=== PATIENT | female | born 1990 | race Caucasian/White ===

== ENCOUNTER → 2016-09-12 | Outpatient (CLI) | payer MEDICAID ==
[~2016-09-12] MED LIST: GASTROGRAFIN SOLUTION 30ML (Q9963) As Ordered ONE; ISOVUE-370 76% 100ML VIAL (Q9967) As Ordered ONE
--- NOTE | 2016-09-12 15:10 | REP ---
CT abdomen with IV and oral contrast: History: Evaluate for ventral hernia. CT contrast dose: 100 mL of Isovue [address] findings: The lung bases are clear. Preliminary personnel monitor radiograph demonstrates an unremarkable bowel gas pattern. There is a low-density lesion in the right lobe of the liver measuring 2.1 cm in greatest diameter. A delayed postcontrast imaging acquisition demonstrates that this partially enhances and becomes isointense with liver. This may be a hemangioma. No other focal liver lesion is seen. The liver is in the upper range of normal with midclavicular span measuring 16.3 cm. The spleen is homogeneous in texture, normal in size. No pancreatic lesion is seen. The gallbladder is unremarkable. There is a cyst in the left kidney in its lower pole measuring 1.3 cm in diameter. No filling defect is seen in the collecting system of either kidney on delayed scan images. There is a small cyst in the upper pole of the right kidney measuring 0.8 cm. No other renal lesion is seen. No retroperitoneal mass or adenopathy is observed. Small and large intestinal bowel loops are normal in the abdomen. There is evidence of a ventral hernia repair. There is an epigastric ventral anterior abdominal wall defect transmitting a small quantity of omental fat through a defect in the anterior abdominal wall measuring 9 x 11 mm. This is above the mesh for the ventral hernia repair. No other abdominal wall defect is seen. Impression: 1. Right paramedian ventral hernia defect 1.1 cm in greatest diameter transmits a small quantity of omental fat. 2. Status post ventral hernia repair in the periumbilical region just below this. 3. Small bilateral simple renal cysts. 4. Low density lesion in the right lobe of the liver measuring 2.1 cm in greatest diameter. This may be a hemangioma. Hepatic sonography recommended in 4-6 months for further evaluation. Signed by Favio Woodward MD 09/12/2016 04:34 P
== END ==
LOC: M RAD 12:13
PROVIDERS: ATTEND Nurse Practitioner Family
DX: K43.9 Ventral hernia without obstruction or gangrene (principal); N28.1 Cyst of kidney, acquired; K76.9 Liver disease, unspecified; Z98.890 Other specified postprocedural states

== ENCOUNTER → 2016-10-10 | Day surgery (SDC) | payer MEDICAID, OTHER ==
[~2016-10-10] VITALS: Ht 162.6 cm; Wt 91.2 kg
[~2016-10-10] MED LIST changes: +BIRTH CONTROL SHOT; +BUPIVACAINE HCL 0.25% 30 ML VIAL As Ordered ONE; -GASTROGRAFIN SOLUTION 30ML (Q9963) As Ordered ONE; +GLYCOPYRROLATE INJ 0.2 MG/ML 2 ML VIAL As Ordered ONE; +HYDROmorphone HCL 1 MG/ML SYRINGE (J1170) IV PRN; +HYDROmorphone HCL 2 MG/ML 1ML VIAL (J1170) As Ordered ONE; +IBUP-1114 PO; -ISOVUE-370 76% 100ML VIAL (Q9967) As Ordered ONE; +KETOROLAC 30 MG/ML VIAL (J1885) IV PRN; +KETOROLAC 60 MG/2 ML VIAL (J1885) As Ordered ONE; +LIDOCAINE 1% SDV INJ 30 ML VIAL As Ordered ONE; +LIDOCAINE 2% INJ 100 MG/5 ML SDV (FOR ANES.) As Ordered ONE; +LR 1,000 ML IV SCH; +METOCLOPRAMIDE INJ 10MG/2ML VIAL (J2765) As Ordered ONE; +METOCLOPRAMIDE INJ 10MG/2ML VIAL (J2765) IV PRN; +MIDAZOLAM INJ 2 MG/2 ML VIAL (J2250) As Ordered ONE; +NEOSTIGMINE 1MG/ML 5 ML SYRINGE (J2710) As Ordered ONE; +NORCO, ANEXSIA 5/325MG TABLET (HYDROcodone/ACETAMINOPHEN) PO PRN; +ONDANSETRON 4MG/2ML VIAL (J2405) As Ordered ONE; +ONDANSETRON 4MG/2ML VIAL (J2405) IV PRN; +PERCOCET 5MG/325MG TAB As Ordered ONE; +PERCOCET 5MG/325MG TAB PO PRN; +PROPOFOL 200 MG/20 ML VIAL As Ordered ONE; +ROCURONIUM BROMIDE 50 MG/5 ML VIAL As Ordered ONE; +TYLE325T5 PO; +dexameTHASONE 4 MG/ML 1ML VIAL (J1100) As Ordered ONE; +fentaNYL 100 MCG/2 ML INJECTION (J3010) As Ordered ONE; +fentaNYL 250 MCG/5 ML INJECTION (J3010) As Ordered ONE
[2016-10-10 06:42] LABS: CONTROL LINE UCG INT CTR LINE PRESENT
[2016-10-10] MEDS: fentaNYL 100 MCG/2 ML INJECTION (J3010) IV PRN ×4 (09:04→09:28)
[2016-10-10 10:55] VITALS: BP 131/63
--- NOTE | 2016-10-11 09:07 | RO ---
DATE OF PROCEDURE: 10/10/2016 PREOPERATIVE DIAGNOSIS: Epigastric hernia. POSTOPERATIVE DIAGNOSIS: Epigastric hernia with incarcerated preperitoneal fat. PROCEDURE: Laparoscopic epigastric hernia repair. SURGEON: Dr. Zack Carrasco ORACLE EBS DEVELOPER: Sloane Ballard NP ANESTHESIA: General anesthesia ESTIMATED BLOOD LOSS: Less than 10 mL. COMPLICATIONS: None. REMARKS: The patient tolerated the procedure well. FINDINGS: She had previous mesh placement for an umbilical hernia repair. The hernia is located just superior to the superior edge of the previously-placed mesh about a 2-cm defect with a moderate-sized preperitoneal fat that was incarcerated in it. PROCEDURE NOTE: Ms. Covington is a 25-year-old female with prior history of an umbilical hernia repair, which appears to have been done laparoscopic or robotic with a mesh placement. Comes in to my office with a bulge on her epigastric area slightly to the right of the midline that is tender on palpation. She came with a CT scan of the abdomen and pelvis demonstrating a small epigastric hernia. She was advised surgery, and we chose laparoscopic approach. DESCRIPTION OF PROCEDURE: She received Ancef preoperatively for prophylaxis. She was brought to the operating room. General endotracheal anesthesia started. Her abdomen prepped and draped in the usual sterile fashion. After performing a surgical time-out, we began our surgery. A small stab incision was created on her left subcostal area. Veress needle was then inserted in a controlled fashion. CO2 insufflation started at a pressure of 15 mmHg. Using the same incision, a 5 mm Visiport was placed under direct vision of the laparoscope. The insertion site was inspected for injury; none was found on insertion of the scope. There were multiple omental adhesions on the anterior abdomen covering the previous hernia repair. A second working port was placed over the left lower quadrant area using a harmonic scalpel. The omental adhesions were freed from the anterior abdominal wall. The epigastric hernia was located on manual palpation, as well as visualization. It seems she has a fairly large patch of mesh covering her umbilicus. This extends to the epigastric hernia. The hernia itself was found just slightly superior to the superior edge of this mesh, not covering it. The falciform ligament was opened up with a harmonic scalpel. The hernia contents, which were preperitoneal fat, was then manually reduced, aided by palpation externally after reducing the fat tissue. The falciform ligament attachments were likewise freed to prepare the abdominal wall for placement of mesh. The defect itself is only about the cavity of the hernia, and the subcutaneous space extends about 4 or 5 cm. The extent of the hernia, as well as the margins, were marked externally. I chose a 9 cm Parietex composite mesh. Transabdominal stay sutures using a 0 Vicryl stitch was placed at the 12 and 6 o'clock position. This was rolled tightly and introduced into the abdomen through one of the port sites. In the abdomen, this was unrolled to place it just below the mesh. The defect itself is slightly to the right of the midline, so we adjusted our placement. The transabdominal sutures were pulled through to the abdomen with a small stab incision and introduction of the Jama-Gonsalves device. It centers on the hernia defect and slightly overlaps the previous mesh. This was laying flat. The intra-abdominal pressure was decreased to 10 mmHg. The mesh was then secured into the abdominal wall with two rows of SecureStrap device. The outer row is at the margin of the mesh in 2 cm spaces, the inner row was a couple of centimeters inside it, outside of the hernia defect. After these transabdominal sutures were tied snugly, the abdomen was then deflated. All ports removed. The port sites were closed with 4-0 Monocryl in subcuticular fashion. All incisions, including the transabdominal suture sites were covered with a Dermabond glue. The patient then promptly awakened, extubated, brought to recovery room stable.
== END | disposition home or self-care (01) ==
LOC: M SDC 05:52
PROVIDERS: ATTEND Surgery
DX: K43.6 Other and unspecified ventral hernia with obstruction, without gangrene (principal); T88.59XD Other complications of anesthesia, subsequent encounter; R06.83 Snoring; Z79.3 Long term (current) use of hormonal contraceptives
CPT/HCPCS: 49653; 84703; C1781; J0690; J1100; J1170; J1885; J2250; J2405; J2710; J2765; J3010

== ENCOUNTER → 2017-07-15 | Outpatient (REF) | payer OTHER ==
[~2017-07-15] MED LIST changes: -BUPIVACAINE HCL 0.25% 30 ML VIAL As Ordered ONE; -GLYCOPYRROLATE INJ 0.2 MG/ML 2 ML VIAL As Ordered ONE; -HYDROmorphone HCL 1 MG/ML SYRINGE (J1170) IV PRN; -HYDROmorphone HCL 2 MG/ML 1ML VIAL (J1170) As Ordered ONE; -KETOROLAC 30 MG/ML VIAL (J1885) IV PRN; -KETOROLAC 60 MG/2 ML VIAL (J1885) As Ordered ONE; -LIDOCAINE 1% SDV INJ 30 ML VIAL As Ordered ONE; -LIDOCAINE 2% INJ 100 MG/5 ML SDV (FOR ANES.) As Ordered ONE; -LR 1,000 ML IV SCH; -METOCLOPRAMIDE INJ 10MG/2ML VIAL (J2765) As Ordered ONE; -METOCLOPRAMIDE INJ 10MG/2ML VIAL (J2765) IV PRN; -MIDAZOLAM INJ 2 MG/2 ML VIAL (J2250) As Ordered ONE; -NEOSTIGMINE 1MG/ML 5 ML SYRINGE (J2710) As Ordered ONE; -NORCO, ANEXSIA 5/325MG TABLET (HYDROcodone/ACETAMINOPHEN) PO PRN; -ONDANSETRON 4MG/2ML VIAL (J2405) As Ordered ONE; -ONDANSETRON 4MG/2ML VIAL (J2405) IV PRN; -PERCOCET 5MG/325MG TAB As Ordered ONE; -PERCOCET 5MG/325MG TAB PO PRN; -PROPOFOL 200 MG/20 ML VIAL As Ordered ONE; -ROCURONIUM BROMIDE 50 MG/5 ML VIAL As Ordered ONE; -dexameTHASONE 4 MG/ML 1ML VIAL (J1100) As Ordered ONE; -fentaNYL 100 MCG/2 ML INJECTION (J3010) As Ordered ONE; -fentaNYL 250 MCG/5 ML INJECTION (J3010) As Ordered ONE
[2017-07-15 16:10] LABS: ALBUMIN 3.9 GM/DL (3.2-5.2); ALBUMIN/GLOBULIN RATIO 1.08 (1.00-1.93); ALKALINE PHOSPHATASE 116 U/L (45-117); ALT/SGPT 47 U/L (12-78); ANION GAP 12 MEQ/L (8-16); AST/SGOT 17 U/L (7-37); BILIRUBIN,TOTAL 0.3 MG/DL (0.2-1.0); BLOOD UREA NITROGEN 7 MG/DL (7-18); CARBON DIOXIDE LEVEL 23 MEQ/L (21-32); CHLORIDE LEVEL 106 MEQ/L (98-107); CREATININE FOR GFR 0.58 MG/DL (0.55-1.02); FREE T4 1.17 NG/DL (0.76-1.46); GLOMERULAR FILTRATION RATE > 60.0 (>60); GLUCOSE, FASTING 97 MG/DL (70-105); POTASSIUM SERUM 4.4 MEQ/L (3.5-5.1); SODIUM LEVEL 141 MEQ/L (136-145); TOTAL PROTEIN 7.5 GM/DL (6.4-8.2)
== END ==
LOC: M SFHCPLAZ 11:31
PROVIDERS: ATTEND Nurse Practitioner Family
DX: R03.0 Elevated blood-pressure reading, without diagnosis of hypertension (principal)

== ENCOUNTER → 2017-07-18 | Outpatient (CLI) | payer OTHER ==
--- NOTE | 2017-07-18 10:27 | REP ---
RIGHT WRIST, FOUR VIEWS: There is no evidence of an acute fracture, dislocation or intrinsic bone disease. IMPRESSION: No fracture or dislocation. Signed by Perry Galvan MD 07/18/2017 10:37 A
== END ==
LOC: M WUC 09:34
PROVIDERS: ATTEND Physician Assistant
DX: M25.531 Pain in right wrist (principal)

== ENCOUNTER → 2017-10-02 | Outpatient (CLI) | payer OTHER | LOC: M EKG 14:13 | DX: R03.0 Elevated blood-pressure reading, without diagnosis of hypertension (principal) | CPT/HCPCS: 93788 ==

== ENCOUNTER → 2017-11-05 | Outpatient (CLI) | payer OTHER ==
[2017-11-05 19:10] LABS: ANION GAP 7 MEQ/L (8-16); BLOOD UREA NITROGEN 11 MG/DL (7-18); CALCIUM LEVEL 8.6 MG/DL (8.5-10.1); CARBON DIOXIDE LEVEL 25 MEQ/L (21-32); CHLORIDE LEVEL 108 MEQ/L (98-107); CREATININE FOR GFR 0.61 MG/DL (0.55-1.30); GLOMERULAR FILTRATION RATE > 60.0 (>60); GLUCOSE, FASTING 85 MG/DL (70-100); SODIUM LEVEL 140 MEQ/L (136-145)
== END ==
LOC: M WUC 15:35
DX: I10 Essential (primary) hypertension (principal)
CPT/HCPCS: 80048

== ENCOUNTER → 2018-07-07 | Outpatient (REF) | payer OTHER | LOC: M LAB REF 11:54 | DX: J02.9 Acute pharyngitis, unspecified (principal) | CPT/HCPCS: 87081 ==

== ENCOUNTER → 2018-09-09 | Outpatient (CLI) | payer OTHER ==
[2018-09-09 20:05] LABS: BLOOD UREA NITROGEN 9 MG/DL (7-18); CALCIUM LEVEL 8.7 MG/DL (8.5-10.1); CARBON DIOXIDE LEVEL 24 MEQ/L (21-32); CHLORIDE LEVEL 107 MEQ/L (98-107); GLOMERULAR FILTRATION RATE > 60.0 (>60); GLUCOSE, FASTING 133 MG/DL (70-100); POTASSIUM SERUM 3.7 MEQ/L (3.5-5.1); SODIUM LEVEL 139 MEQ/L (136-145)
== END ==
LOC: M WUC 16:39
PROVIDERS: ATTEND Nurse Practitioner Family
DX: I10 Essential (primary) hypertension (principal)

== ENCOUNTER → 2018-09-10 | Outpatient (REF) | payer OTHER ==
[2018-09-10 12:09] LABS: CHOLESTEROL RISK RATIO 5.093 (<5)
[2018-09-10 12:19] LABS: MALB URINE SIEMENS 53.2 MG/L; MAU/CREAT RATIO 36.6 MCG/MG (0.0-30.0)
[2018-09-10 12:41] LABS: HEMOGLOBIN A1c 5.4 %
== END ==
LOC: M SFHCPLAZ 09:52
PROVIDERS: ATTEND Nurse Practitioner Family
DX: I10 Essential (primary) hypertension (principal); R73.01 Impaired fasting glucose

== ENCOUNTER → 2018-09-25 | Outpatient (REF) | payer OTHER ==
[2018-09-25 16:15] LABS: BASO # 0.1 10^3/uL (0.0-0.2); BASO % 0.8 % (0.0-1.0); EOS # 0.2 10^3/uL (0.0-0.50); HEMATOCRIT 46.4 % (36.0-47.0); HEMOGLOBIN 15.6 g/dl (12.0-15.5); LYMPH # 3.6 10^3/uL (1.5-6.5); LYMPH % 24.5 % (24.0-44.0); MEAN CORPUSCULAR HEMOGLOBIN 27.6 pg (27.0-33.0); MEAN CORPUSCULAR HGB CONC 33.6 g/dl (32.0-36.5); MEAN CORPUSCULAR VOLUME 82.1 fl (80.0-96.0); MONO # 1.1 10^3/uL (0.0-0.8); MONO % 7.8 % (0.0-5.0); NEUTROPHILS # 9.4 10^3/uL (1.8-7.7); NEUTROPHILS % 64.7 % (36.0-66.0); PLATELET COUNT, AUTOMATED 413 10^3/uL (150-450); RED BLOOD COUNT 5.65 10^6/uL (4.00-5.40); WHITE BLOOD COUNT 14.6 10^3/uL (4.0-10.0)
[2018-09-25 16:16] LABS: ALBUMIN 3.8 GM/DL (3.2-5.2); ALT/SGPT 40 U/L (12-78); BILIRUBIN,TOTAL 0.3 MG/DL (0.2-1.0); BLOOD UREA NITROGEN 10 MG/DL (7-18); CALCIUM LEVEL 9.1 MG/DL (8.5-10.1); CARBON DIOXIDE LEVEL 26 MEQ/L (21-32); CHLORIDE LEVEL 104 MEQ/L (98-107); CREATININE FOR GFR 0.61 MG/DL (0.55-1.30); GLOMERULAR FILTRATION RATE > 60.0 (>60); GLUCOSE, FASTING 77 MG/DL (70-100); LIPASE 133 U/L (73-393); POTASSIUM SERUM 3.8 MEQ/L (3.5-5.1); SODIUM LEVEL 139 MEQ/L (136-145); TOTAL PROTEIN 7.3 GM/DL (6.4-8.2)
== END ==
LOC: M SFHCPLAZ 13:58
PROVIDERS: ATTEND Family Medicine
DX: R10.11 Right upper quadrant pain (principal)

== ENCOUNTER → 2018-09-26 | Outpatient (CLI) | payer OTHER ==
--- NOTE | 2018-09-26 15:43 | REP ---
LIMITED ABDOMEN ULTRASOUND: HISTORY: Right upper quadrant pain. COMPARISON: CT 09/12/2016. There are no filling defects in the gallbladder. The gallbladder wall measures 2.7 mm. The common bile duct measures 5 mm. There is fatty infiltration of the liver. A 2.5 cm cystic lesion is present in the right lobe of the liver. The pancreas is normal in echogenicity. The right kidney measures 5.7 cm in transverse by 4 cm in AP by 12.8 cm in cephalocaudal dimensions. There is no hydronephrosis or mass. IMPRESSION: Small 2.5 cm liver cyst. Electronically Signed by Julio Littlejohn MD 09/26/2018 03:46 P
== END ==
LOC: M RAD 08:30
PROVIDERS: ATTEND Family Medicine
DX: K76.89 Other specified diseases of liver (principal)

== ENCOUNTER → 2018-10-01 | Outpatient (REF) | payer OTHER ==
[2018-10-01 11:55] LABS: BASO # 0.1 10^3/uL (0.0-0.2); BASO % 0.8 % (0.0-1.0); EOS # 0.1 10^3/uL (0.0-0.50); EOS % 0.8 % (0.0-3.0); HEMATOCRIT 46.3 % (36.0-47.0); HEMOGLOBIN 15.7 g/dl (12.0-15.5); LYMPH # 3.1 10^3/uL (1.5-6.5); LYMPH % 23.5 % (24.0-44.0); MEAN CORPUSCULAR HEMOGLOBIN 27.8 pg (27.0-33.0); MEAN CORPUSCULAR HGB CONC 33.9 g/dl (32.0-36.5); MEAN CORPUSCULAR VOLUME 82.1 fl (80.0-96.0); MONO # 0.6 10^3/uL (0.0-0.8); MONO % 4.8 % (0.0-5.0); NEUTROPHILS # 9.1 10^3/uL (1.8-7.7); NEUTROPHILS % 68.9 % (36.0-66.0); PLATELET COUNT, AUTOMATED 424 10^3/uL (150-450); RED BLOOD COUNT 5.64 10^6/uL (4.00-5.40); WHITE BLOOD COUNT 13.2 10^3/uL (4.0-10.0)
== END ==
LOC: M SFHCPLAZ 10:05
PROVIDERS: ATTEND Nurse Practitioner Family
DX: R10.11 Right upper quadrant pain (principal); R10.31 Right lower quadrant pain

== ENCOUNTER → 2018-10-01 | Outpatient (CLI) | payer OTHER ==
[~2018-10-01] MED LIST changes: +GASTROGRAFIN SOLUTION 30ML (Q9963) As Ordered ONE; +ISOVUE-370 76% 100ML VIAL (Q9967) As Ordered ONE
--- NOTE | 2018-10-01 16:57 | REP ---
Clinical: Acute abdominal pain. Technique: Axial contrast enhanced images from the lung bases to the pubic symphysis using oral (per protocol) and 100 ml Isovue 370 intravenous contrast material with precontrast and delayed images of the abdomen as well as coronal and sagittal re-formations. Findings: Lung bases are clear. Visualized heart and pericardium normal. Small hiatal hernia noted at the gastroesophageal junction. Liver includes 2.9 cm hemangioma in the right lobe. Spleen, pancreas, gallbladder, and bilateral adrenal glands are normal. Kidneys demonstrate subcentimeter right and 1.4 cm left renal cysts. The enteric system is without obstruction or acute inflammatory process. Normal terminal ileum and appendix are identified in the right lower quadrant. Pelvis demonstrates normal bladder and age-appropriate uterus/adnexa. No ascites. No free air. No adenopathy. Abdominal aorta and vasculature normal. Musculoskeletal structures are intact. Impression: 1. 2.9 cm hepatic hemangioma. 2. Solitary bilateral renal cysts. 3. Small hiatal hernia. 4. No further acute abdominopelvic pathology appreciated. Electronically Signed by Donald Bates MD 10/01/2018 04:48 P
== END ==
LOC: M RAD 14:19
PROVIDERS: ATTEND Nurse Practitioner Family
DX: D18.09 Hemangioma of other sites (principal); N28.1 Cyst of kidney, acquired; K44.9 Diaphragmatic hernia without obstruction or gangrene
CPT/HCPCS: 74178; Q9963; Q9967

== ENCOUNTER → 2018-12-03 | Outpatient (REF) | payer OTHER ==
[~2018-12-03] MED LIST changes: -GASTROGRAFIN SOLUTION 30ML (Q9963) As Ordered ONE; -ISOVUE-370 76% 100ML VIAL (Q9967) As Ordered ONE
[2018-12-03 20:36] LABS: CHLAMYDIA DNA AMPLIFICATION NEGATIVE (NEGATIVE); GC DNA AMPLIFICATION NEGATIVE (NEGATIVE)
== END ==
LOC: M LAB REF 16:38
PROVIDERS: ATTEND Physician Assistant
DX: Z11.3 Encounter for screening for infections with a predominantly sexual mode of transmission (principal)

== ENCOUNTER 2019-01-09 15:06 | Emergency (ER) | payer OTHER ==
[~2019-01-09] VITALS: Ht 162.6 cm; Wt 102.2 kg
[2019-01-09] MEDS ORDERED: AMLO5TAB6 (15:14)
[2019-01-09] MEDS ORDERED: KETOROLAC 30 MG/ML VIAL (J1885) IM ONE (17:30)
[2019-01-09 19:07] VITALS: BP 147/87
[2019-01-09] MEDS ORDERED: KETO10TAB PO (19:18)
--- NOTE | 2019-01-09 19:45 | REP ---
THORACIC SPINE, THREE VIEWS: HISTORY: Fall. There is no acute fracture or subluxation. The intervertebral discs are normal in height. IMPRESSION:There is no acute fracture or subluxation. Electronically Signed by Julio Littlejohn MD 01/09/2019 09:18 P
--- NOTE | 2019-01-10 08:15 | REP ---
CERVICAL SPINE, SEVEN VIEWS: HISTORY: Fall. The cervical spine is visualized from C1-2 to C6-7 level on the lateral radiographs. There is no acute fracture or subluxation. The intervertebral discs are normal in height. The neural foramina are patent. IMPRESSION: There is no acute fracture or subluxation. Electronically Signed by Julio Littlejohn MD 01/10/2019 08:18 A
== END 2019-01-09 19:31 | disposition home or self-care (01) ==
LOC: M ED 15:06
DX: S29.012A Strain of muscle and tendon of back wall of thorax, initial encounter (principal); X50.9XXA Other and unspecified overexertion or strenuous movements or postures, initial encounter; Y92.89 Other specified places as the place of occurrence of the external cause; I10 Essential (primary) hypertension; E78.00 Pure hypercholesterolemia, unspecified
CPT/HCPCS: 72052; 72072; 96372; 99283; J1885

== ENCOUNTER → 2019-06-11 | Outpatient (CLI) | payer OTHER ==
[~2019-06-11] MED LIST changes: +AMLO5TAB6; +KETO10TAB PO
[2019-06-11 12:08] LABS: HEMATOCRIT 46.3 % (36.0-47.0); HEMOGLOBIN 15.7 g/dl (12.0-15.5); MEAN CORPUSCULAR HGB CONC 33.9 g/dl (32.0-36.5); MEAN CORPUSCULAR VOLUME 85.4 fl (80.0-96.0); PLATELET COUNT, AUTOMATED 398 10^3/uL (150-450); RED BLOOD COUNT 5.42 10^6/uL (4.00-5.40); WHITE BLOOD COUNT 10.6 10^3/uL (4.0-10.0)
[2019-06-11 12:42] LABS: ALT/SGPT 63 U/L (12-78); BLOOD UREA NITROGEN 14 MG/DL (7-18); CALCIUM LEVEL 9.2 MG/DL (8.5-10.1); CARBON DIOXIDE LEVEL 27 MEQ/L (21-32); CHLORIDE LEVEL 106 MEQ/L (98-107); CREATININE FOR GFR 0.76 MG/DL (0.55-1.30); GLOMERULAR FILTRATION RATE > 60.0 (>60); GLUCOSE, FASTING 81 MG/DL (70-100); POTASSIUM SERUM 4.4 MEQ/L (3.5-5.1); SODIUM LEVEL 138 MEQ/L (136-145)
[2019-06-11 12:43] LABS: ALBUMIN 3.7 GM/DL (3.2-5.2); BILIRUBIN,TOTAL 0.4 MG/DL (0.2-1.0); TOTAL PROTEIN 7.6 GM/DL (6.4-8.2)
== END ==
LOC: M LAB 11:26
PROVIDERS: ATTEND Surgery
DX: R10.11 Right upper quadrant pain (principal)

== ENCOUNTER → 2019-06-19 | Outpatient (CLI) | payer OTHER ==
--- NOTE | 2019-06-19 08:39 | REP ---
Clinical: Right upper quadrant pain. Technique: Real time ro scale ultrasound examination using curved array transducer. Findings: Liver is mildly enlarged measuring 22 cm in craniocaudal length and increased in echogenicity suggesting fatty infiltration. Focal fatty sparing noted adjacent to the gallbladder fossa. No focal hepatic lesion identified. The pancreas is unremarkable. The gallbladder is normal and without gallstones, wall thickening, or pericholecystic fluid. No biliary ductal dilatation is appreciated and the common bile duct measures 4.8 mm diameter. The right kidney is normal in reniform shape without hydronephrosis and measures 13.0 x 4.6 x 4.0 cm. No ascites. Impression: Hepatomegaly and hepatosteatosis. Electronically Signed by Donald Bates MD 06/19/2019 08:30 A
== END ==
LOC: M RAD 07:25
PROVIDERS: ATTEND Surgery
DX: R16.0 Hepatomegaly, not elsewhere classified (principal); K76.0 Fatty (change of) liver, not elsewhere classified

== ENCOUNTER 2019-08-23 14:14 | Emergency (ER) | payer OTHER ==
[~2019-08-23] VITALS: Ht 162.6 cm; Wt 98.4 kg
[2019-08-23] MEDS ORDERED: KETOROLAC 60 MG/2 ML VIAL (J1885) IM ONE (15:00)
[2019-08-23] MEDS ORDERED: HYDR12.55 (15:06)
--- NOTE | 2019-08-23 15:15 | REP ---
Right ankle series: Four views. History: Injury in a fall. Findings: Four views of the right ankle demonstrate an intact ankle mortise. There is plantar calcaneal spurring. Anterolateral soft tissue swelling is seen. Impression: No fracture seen. Mild anterolateral soft tissue swelling. Electronically Signed by Favio Woodward MD 08/23/2019 03:06 P
[2019-08-23 15:35] VITALS: BP 162/88
== END 2019-08-23 15:35 | disposition home or self-care (01) ==
LOC: M ED 14:14
DX: S93.401A Sprain of unspecified ligament of right ankle, initial encounter (principal); X50.9XXA Other and unspecified overexertion or strenuous movements or postures, initial encounter; Y92.018 Other place in single-family (private) house as the place of occurrence of the external cause; I10 Essential (primary) hypertension; E78.00 Pure hypercholesterolemia, unspecified; Z79.899 Other long term (current) drug therapy
CPT/HCPCS: 36415; 73610; 84702; 96372; 99284; J1885

== ENCOUNTER → 2019-10-20 | Outpatient (REF) | payer OTHER ==
[~2019-10-20] MED LIST changes: +HYDR12.55
[2019-10-20 11:47] LABS: HEMOGLOBIN 15.5 g/dl (12.0-15.5); MEAN CORPUSCULAR HEMOGLOBIN 28.3 pg (27.0-33.0); MEAN CORPUSCULAR HGB CONC 33.7 g/dl (32.0-36.5); MEAN CORPUSCULAR VOLUME 84.1 fl (80.0-96.0); PLATELET COUNT, AUTOMATED 383 10^3/uL (150-450); RED BLOOD COUNT 5.47 10^6/uL (4.00-5.40); WHITE BLOOD COUNT 8.6 10^3/uL (4.0-10.0)
[2019-10-20 12:00] LABS: BLOOD UREA NITROGEN 8 MG/DL (7-18); CALCIUM LEVEL 8.7 MG/DL (8.5-10.1); CARBON DIOXIDE LEVEL 26 MEQ/L (21-32); CHLORIDE LEVEL 106 MEQ/L (98-107); CREATININE FOR GFR 0.67 MG/DL (0.55-1.30); GLOMERULAR FILTRATION RATE > 60.0 (>60); GLUCOSE, FASTING 95 MG/DL (70-100); POTASSIUM SERUM 3.7 MEQ/L (3.5-5.1); SODIUM LEVEL 138 MEQ/L (136-145)
[2019-10-20 12:19] LABS: ERYTHROCYTE SEDIMENTATION RATE 19 mm/hr (0-20)
== END ==
LOC: M SFHCPLAZ 09:38
PROVIDERS: ATTEND Nurse Practitioner Family
DX: G43.109 Migraine with aura, not intractable, without status migrainosus (principal); I10 Essential (primary) hypertension

== ENCOUNTER 2020-05-16 16:51 | Emergency (ER) | payer OTHER ==
[~2020-05-16] VITALS: Ht 162.6 cm; Wt 93.2 kg
[~2020-05-16 16:51] MED LIST changes: +AMLO1TAB24; -AMLO5TAB6
[2020-05-16 17:14] VITALS: BP 150/86
[2020-05-16] MEDS ORDERED: LABETALOL 100 MG TAB PO STA (17:14)
[2020-05-16] MEDS ORDERED: NS 1,000 ML IV ONE (17:15)
--- NOTE | 2020-05-16 17:42 | REPVR ---
PROCEDURE INFORMATION: Exam: XR Chest, 1 View Exam date and time: 05/16/2020 5:21 PM Age: 29 years old Clinical indication: Other: Chest pain TECHNIQUE: Imaging protocol: XR of the chest Views: 1 view. COMPARISON: No relevant prior studies available. FINDINGS: Lungs: Degree of lung inflation is normal. No evidence of pulmonary edema. No focal consolidation or parenchymal lung mass. Pleural space: No pleural effusion or pneumothorax. Heart/Mediastinum: Cardiac silhouette appears normal. No adenopathy or hilar mass. Bones/joints: Osseous structures show no concerning abnormality. IMPRESSION: No acute or focal cardiopulmonary process. Electronically signed by: Teodoro Rebolledo On 05/16/2020 17:42:06 PM
[2020-05-16 17:44] LABS: BASO # 0.1 10^3/uL (0.0-0.2); BASO % 0.5 % (0.0-1.0); EOS # 0.1 10^3/uL (0.0-0.5); EOS % 1.1 % (0.0-3.0); HEMATOCRIT 36.2 % (36.0-47.0); HEMOGLOBIN 12.4 g/dl (12.0-15.5); LYMPH # 1.6 10^3/uL (1.5-5.0); LYMPH % 14.9 % (24.0-44.0); MEAN CORPUSCULAR HEMOGLOBIN 28.3 pg (27.0-33.0); MEAN CORPUSCULAR HGB CONC 34.3 g/dl (32.0-36.5); MEAN CORPUSCULAR VOLUME 82.6 fl (80.0-96.0); MONO # 0.7 10^3/uL (0.0-0.8); NEUTROPHILS # 8.3 10^3/uL (1.5-8.5); NEUTROPHILS % 76.7 % (36.0-66.0); PLATELET COUNT, AUTOMATED 342 10^3/uL (150-450); RED BLOOD COUNT 4.38 10^6/uL (4.00-5.40); WHITE BLOOD COUNT 10.9 10^3/uL (4.0-10.0)
[2020-05-16 17:56] LABS: INR 0.97; PROTHROMBIN TIME 13.1 SECONDS (12.5-14.3)
--- NOTE | 2020-05-16 18:04 | ECGEPIP ---
[facility] - ED Test Date: 2020-05-16 Pat Name: LORI CHRISTIAN Department: Room: - Gender: Female Sample Paster: MARTIN : 1990 Requested By: Cathleen Russell Order Number: [id number] Reading MD: Cathleen Russell Measurements Intervals [place] Rate: 115 P: 16 OK: 147 QRS: 50 QRSD: 87 T: 5 QT: 323 QTc: 447 Interpretive Statements SINUS TACHYCARDIA NSTTW abnormalities ABNORMAL RHYTHM ECG No prior Electronically Signed on 05-16-2020 18:03:44 EDT by Cathleen Russell
[2020-05-16 18:15] LABS: ALBUMIN 2.9 GM/DL (3.2-5.2); ALT/SGPT 16 U/L (12-78); BILIRUBIN,DIRECT < 0.1 MG/DL (0.0-0.2); BILIRUBIN,TOTAL 0.1 MG/DL (0.2-1.0); BLOOD UREA NITROGEN 8 MG/DL (7-18); CALCIUM LEVEL 9.2 MG/DL (8.5-10.1); CARBON DIOXIDE LEVEL 21 MEQ/L (21-32); CHLORIDE LEVEL 108 MEQ/L (98-107); CK-MB VALUE MASS < 1.0 NG/ML (<3.6); CPK CREATINE PHOSPHOKINASE 46 U/L (26-192); CREATININE FOR GFR 0.51 MG/DL (0.55-1.30); FREE T4 1.11 NG/DL (0.76-1.46); GLOMERULAR FILTRATION RATE > 60.0 (>60); GLUCOSE, FASTING 89 MG/DL (70-100); LIPASE 108 U/L (73-393); MB/CK RELATIVE INDEX 2.17 (< OR =4); NT-PRO BNP 38 PG/ML (<125); POTASSIUM SERUM 3.4 MEQ/L (3.5-5.1); SODIUM LEVEL 137 MEQ/L (136-145); TOTAL PROTEIN 6.8 GM/DL (6.4-8.2); TROPONIN I < 0.02 NG/ML (< 0.10)
[2020-05-16] MEDS ORDERED: LABE100T36 PO (18:42)
[2020-05-16 19:30] VITALS: BP 148/80
== END 2020-05-16 19:41 | disposition home or self-care (01) ==
LOC: EDBD 16:51 → M ED 16:51
DX: O10.012 Pre-existing essential hypertension complicating pregnancy, second trimester (principal); O99.282 Endocrine, nutritional and metabolic diseases complicating pregnancy, second trimester; E78.5 Hyperlipidemia, unspecified; Z3A.14 14 weeks gestation of pregnancy

== ENCOUNTER → 2020-05-20 | Outpatient (CLI) | payer OTHER ==
[~2020-05-20] MED LIST changes: +LABE100T36 PO
== END ==
LOC: M LAB 12:12
PROVIDERS: ATTEND Obstetrics & Gynecology
DX: O99.211 Obesity complicating pregnancy, first trimester (principal); E66.9 Obesity, unspecified

== ENCOUNTER → 2020-06-15 | Outpatient (CLI) | payer OTHER ==
--- NOTE | 2020-06-15 14:35 | REP ---
INDICATION: ANATOMY. COMPARISON: 04/06/2020 TECHNIQUE: Second trimester anatomy screening OB ultrasound. FINDINGS: Scanning demonstrates a viable single intrauterine gestation in a variable lie. motion is observed and heart rate is recorded at 152 beats per minute. An anterior, grade 1 placenta is seen without evidence of previa or abruption. Amniotic fluid is subjectively normal. Closed cervical length is measured at 3.2 cm transabdominally. No extrauterine abnormality is observed. There has been appropriate interval growth. No anomaly is seen. The following anatomic structures are identified and felt to be sonographically unremarkable: cranium, choroid plexus, cavum, cerebellum and posterior fossa, face and profile, lungs, left ventricular outflow tract views, diaphragm, left-sided stomach, abdominal wall cord insertion, three-vessel umbilical cord, kidneys and bladder and upper and lower extremities. Biometry chart: BPD 4.2 cm; 18 weeks 5 days Head circumference 15.9 cm; 18 weeks 5 days Abdominal circumference 13.9 cm; 19 weeks 2 days Femur length 2.8 cm; 18 weeks 4 days Humeral length 2.7 cm; 18 weeks 5 days HC/AC ratio normal Cephalic index normal Estimated weight 266 grams, 0 pounds 9 ounces, 68 percentile for 18 weeks 4 days. IMPRESSION: A single intrauterine gestation in variable position with anterior grade 1 placenta without previa or abruption and with the mid cord insertion. Amniotic fluid volume is normal and heart rate 152 and regular. Average ultrasound age today 18 weeks 6 days EDC 11/10/2020. Her known EDC is 11/12/2020 or 18 weeks 4 days. Normal interval growth, size and dates as above. No visible anomaly but due to position the 4 chamber view, right ventricular outflow tract and spine are not optimally visualized. She may be rescanned later in the 2nd trimester. <Electronically signed by Bob Murrieta > 06/15/20 [id number]
== END ==
LOC: M WHC 08:48
PROVIDERS: ATTEND Obstetrics & Gynecology
DX: Z34.92 Encounter for supervision of normal pregnancy, unspecified, second trimester (principal); Z3A.18 18 weeks gestation of pregnancy

== ENCOUNTER → 2020-06-29 | Outpatient (CLI) | payer OTHER ==
--- NOTE | 2020-06-29 11:12 | REP ---
INDICATION: F/U ANATOMY COMPARISON: 06/15/2020 TECHNIQUE: Transabdominal obstetrical ultrasound with color Doppler evaluation. FINDINGS: Examination demonstrates a single live intrauterine in breech presentation. motion is identified by technologist. Placenta is noted anterior and grade 1 without evidence for placenta previa or abruption. Amniotic fluid volume is normal. Cervix measures 3.4 cm in length and appears closed.. Gestational age by LMP 20 weeks 4 days with ANGIE 11/12/2020. Gestational age by current measurements 20 weeks 4 days with ANGIE 11/12/2020. FHR equals 150 beats per minute. Estimated weight 388 grams (66thpercentile). Anatomical assessment demonstrates normal structures including four-chamber heart/right cardiac ventricular outflow tract and spine. IMPRESSION: Single live intrauterine in breech presentation demonstrating appropriate estimated weight and growth. In conjunction with prior examination anatomical assessment is complete and normal. <Electronically signed by Donald Bates > 06/29/20 [id number]
== END ==
LOC: M WHC 08:55
PROVIDERS: ATTEND Advanced Practice Midwife
DX: O34.211 Maternal care for low transverse scar from previous cesarean delivery (principal); O32.1XX0 Maternal care for breech presentation, not applicable or unspecified; Z3A.20 20 weeks gestation of pregnancy

== ENCOUNTER → 2020-08-12 | Outpatient (CLI) | payer OTHER ==
[2020-08-12 13:17] LABS: HEMATOCRIT 36.3 % (36.0-47.0); HEMOGLOBIN 11.6 g/dl (12.0-15.5); MEAN CORPUSCULAR VOLUME 84.4 fl (80.0-96.0); PLATELET COUNT, AUTOMATED 329 10^3/uL (150-450); WHITE BLOOD COUNT 10.6 10^3/uL (4.0-10.0)
== END ==
LOC: M WHC 08:32
PROVIDERS: ATTEND Obstetrics & Gynecology
DX: O10.919 Unspecified pre-existing hypertension complicating pregnancy, unspecified trimester (principal)

== ENCOUNTER → 2020-08-19 | Outpatient (CLI) | payer OTHER ==
--- NOTE | 2020-08-19 16:12 | REP ---
INDICATION: PRE EXISTING HYPERTENSION,GROWTH. COMPARISON: 06/29/2020. TECHNIQUE: Real-time sonographic evaluation of the gravid uterus performed. FINDINGS: Estimated gestational age is27 weeks 6 days, EDC 11/12/2020. Today's measurements indicate appropriate growth. Presentation: Cephalic Placenta anterior, grade 2, without evidence of placenta previa. heart rate is recorded at 149 beats per minute. Amniotic fluid is subjectively normal. EDWARDO 14.5, normal range 9.4-22.8. Closed cervical length is measured at 3.7 cm. Biometry chart: BPD: 68 mm, 27 weeks 2 days, 37th percentile. HC: 258 mm, 28 weeks 0 days, 54th percentile AC: 256 mm, 29 weeks 6 days, 90th percentile Femur length: 55 mm, 29 weeks 0 days, 75th percentile HC to AC ratio: 1.01, normal range 1.00-1.18. Estimated weight: 1348g, 85th percentile. IMPRESSION: Viable single intrauterine gestation as above. <Electronically signed by Perry Galvan > 08/19/20 [id number]
== END ==
LOC: M WHC 09:01
PROVIDERS: ATTEND Obstetrics & Gynecology
DX: O10.912 Unspecified pre-existing hypertension complicating pregnancy, second trimester (principal); Z3A.27 27 weeks gestation of pregnancy

== ENCOUNTER → 2020-08-20 | Outpatient (CLI) | payer OTHER ==
[2020-08-20 11:12] VITALS: BP 127/67
--- NOTE | 2020-08-20 12:50 | IPNPDOC ---
Obstetrical Progress Note Date of Service Aug 20, 2020 Subjective 29yo at 28+0 weeks EGA. H/o CHTN, LTCS, and obesity. Presented today for BP check. States her BP monitor at home was reading SBP 180. She is currently taking Labetalol 100mg BID. Denies LESTER, visual changes, RUQ pain, sob, cp. Only complaint is lower back pain. Denies VB/LOF/uctx. Reports regular/frequent FM. PMH/SH reviewed; no significant changes since her last PN appointment. Objective Vital Signs Date Time Temp Pulse Resp B/P (MAP) Pulse Ox O2 Delivery O2 Flow Rate FiO2 08/20/20 11:12 113 127/67 (87) 08/20/20 11:10 98.1 18 Assessment Heart Rate Tracing: Category I Tocometer Contractions: No Assessment and Plan Additional Comments Vitals wnl/normotensive (several BP readings). Abd: soft,nt,nd A/P: 29yo at 28+ weeks with CHTN. No evidence of pre-e / severe features/HTN. Reassuring maternal and status. Continue labetalol 100mg BID. Return to office as scheduled. Routine precautions reviewed. JEANNIE PISANO DO Aug 20, 2020 12:50
== END ==
LOC: M LDO 10:50
PROVIDERS: ATTEND Obstetrics & Gynecology
DX: O13.3 Gestational [pregnancy-induced] hypertension without significant proteinuria, third trimester (principal); Z3A.28 28 weeks gestation of pregnancy

== ENCOUNTER → 2020-08-25 | Outpatient (CLI) | payer OTHER | LOC: M LAB 07:58 | PROVIDERS: ATTEND Advanced Practice Midwife | DX: Z34.82 Encounter for supervision of other normal pregnancy, second trimester (principal); Z3A.26 26 weeks gestation of pregnancy ==

== ENCOUNTER → 2020-09-16 | Outpatient (CLI) | payer OTHER ==
--- NOTE | 2020-09-16 09:50 | REP ---
INDICATION: SIUP CHTN,GROWTH. COMPARISON: Comparison study 19 August 2020.. TECHNIQUE: Transabdominal obstetric sonography. growth study. FINDINGS: Scanning through the gravid uterus demonstrates a viable single intrauterine gestation in cephalic lie. motion is observed and heart rate is recorded at 149 beats per minute. A anterior placenta is seen, grade 2, without evidence of placenta previa. Closed cervical length is measured at 3.2 cm transabdominally. No extrauterine abnormality is observed. Amniotic fluid is subjectively normal. EDWARDO is normal at 13.8 cm.. anatomic survey was not conducted with this exam.. Biometry chart: BPD 8.2 cm, 32 weeks 6 days Head circumference 29.2 cm, 32 weeks 1 day Abdominal circumference 30.1 cm, 34 weeks 0 days Femur length 6.3 cm, 32 weeks 4 days Humeral length 5.5 cm, 32 weeks 1 day HC AC ratio normal 0.97 Cephalic index normal 0.79 Estimated weight 2172 g, 4 lb 12 oz, 84th percentile for 31 weeks 6 days IMPRESSION: Viable single intrauterine gestation at 32 weeks 5 days by today's composite sonographic criteria. ANGIE by today's sonography November 06, 2020. No complication identified. Expected gestational age estimate based on prior sonography is 31 weeks 6 days. ANGIE by prior sonography November 12, 2020. There is appropriate interval growth. <Electronically signed by Saurabh Woodward > 09/16/20 [id number]
== END ==
LOC: M WHC 08:57
PROVIDERS: ATTEND Obstetrics & Gynecology
DX: Z36.2 Encounter for other antenatal screening follow-up (principal); Z3A.32 32 weeks gestation of pregnancy

== ENCOUNTER → 2020-10-07 | Outpatient (CLI) | payer OTHER ==
[~2020-10-07] MED LIST changes: -LABE100T36 PO; +LABE100T5 PO
--- NOTE | 2020-10-07 10:33 | REP ---
INDICATION: GROWTH/HYPERTENSION/DIABETES COMPARISON: 09/16/2020 TECHNIQUE: Transabdominal obstetrical ultrasound with color Doppler evaluation. FINDINGS: Examination demonstrates a single live intrauterine in cephalic presentation. motion is identified by technologist. Placenta is noted anterior and grade 2 without evidence for placenta previa or abruption. Amniotic fluid volume is normal. Cervix measures 3.0 cm in length and appears closed.. Gestational age by LMP and 1st ultrasound 34 weeks 6 days with ANGIE 11/12/2020. Gestational age by current measurements 35 weeks 6 days with ANGIE 11/05/2020. FHR equals 152 beats per minute. BPD: 8.6 cm at 34 weeks 4 days HC: 31.6 cm at 35 weeks 4 days AC: 33.8 cm at 37 weeks 5 days FL: 6.9 cm at 35 weeks 3 days HL: 6.2 cm at 36 weeks 0 days HC/AC: 0.93 Estimated weight 2971 grams (89thpercentile). EDWARDO: 16.2 cm IMPRESSION: Single live advanced gestation in cephalic presentation. Estimated growth and weight are within normal range. <Electronically signed by Donald Bates > 10/07/20 [id number]
== END ==
LOC: M WHC 09:08
PROVIDERS: ATTEND Obstetrics & Gynecology
DX: O10.913 Unspecified pre-existing hypertension complicating pregnancy, third trimester (principal); Z3A.35 35 weeks gestation of pregnancy

== ENCOUNTER → 2020-10-12 | Outpatient (REF) | payer OTHER ==
[~2020-10-12] MED LIST changes: +PRENTAB9 PO
== END ==
LOC: M PLALAB 13:16
PROVIDERS: ATTEND Obstetrics & Gynecology
DX: Z36.85 Encounter for antenatal screening for Streptococcus B (principal); Z3A.35 35 weeks gestation of pregnancy

== ENCOUNTER → 2020-10-12 | Outpatient (CLI) | payer OTHER ==
[~2020-10-12] MED LIST changes: -PRENTAB9 PO
--- NOTE | 2020-10-12 10:55 | REP ---
INDICATION: HYPERTENSION,DIABETES,GROWTH COMPARISON: 10/07/2020 TECHNIQUE: Transabdominal obstetrical ultrasound with color Doppler evaluation. FINDINGS: Examination demonstrates a single live intrauterine in cephalic presentation. motion is identified by technologist. Placenta is noted anterior and grade 2 without evidence for placenta previa or abruption. Amniotic fluid volume is normal. Cervix measures 3.0 cm in length and appears closed.. Gestational age by LMP 35 weeks 4 days with ANGIE 11/12/2020. EDWARDO: 14.6 cm (7.8-24.9) Biophysical profile score: 8/8 Umbilical artery SD ratio: 2.41 (1.66-3.54). IMPRESSION: Single live intrauterine in cephalic presentation demonstrating appropriate amniotic fluid index and biophysical profile. <Electronically signed by Donald Bates > 10/12/20 [id number]
== END ==
LOC: M WHC 09:01
PROVIDERS: ATTEND Obstetrics & Gynecology
DX: O10.913 Unspecified pre-existing hypertension complicating pregnancy, third trimester (principal); O24.419 Gestational diabetes mellitus in pregnancy, unspecified control; Z3A.35 35 weeks gestation of pregnancy

== ENCOUNTER → 2020-10-19 | Outpatient (CLI) | payer OTHER ==
[~2020-10-19] MED LIST changes: +PRENTAB9 PO
== END ==
LOC: M LABSMTC 10:22
PROVIDERS: ATTEND Anesthesiology
DX: Z01.812 Encounter for preprocedural laboratory examination (principal); Z20.822 Contact with and (suspected) exposure to COVID-19

== ENCOUNTER → 2020-10-20 | Outpatient (CLI) | payer OTHER ==
--- NOTE | 2020-10-20 14:36 | REP ---
INDICATION: PRE EXISTING HYPERTENSION,BPP. COMPARISON: 10/12/2020 TECHNIQUE: Multiple ultrasonographic images of the gravid uterus. FINDINGS: Gestational age by the 1st ultrasound is 36 weeks 5 days with an ANGIE of 11/12/2020. There is a single intrauterine gestation in a cephalic presentation. The placenta is anterior with grade 2 maturity. There is no previa. The umbilical cord inserts centrally onto the placenta. Cervix measures 3.1 length cm. heart rate is 146 beats per minute. Amniotic fluid index is 10.8. Normal is 7.6-24.5. Biophysical profile: breathing 2 tone 2 movement 2 AFV 2 Total: 8/8. IMPRESSION: The biophysical profile is 8/8. <Electronically signed by Perry Sandra > 10/20/20 [id number]
== END ==
LOC: M WHC 12:13
PROVIDERS: ATTEND Obstetrics & Gynecology
DX: O10.012 Pre-existing essential hypertension complicating pregnancy, second trimester (principal); Z3A.36 36 weeks gestation of pregnancy

== ENCOUNTER 2020-10-24 06:43 | Inpatient (IN) | payer OTHER ==
[~2020-10-24] VITALS: Ht 162.6 cm; Wt 103.2 kg
[2020-10-24] VITALS (10 sets, daily range): BP systolic 123–177; BP diastolic 66–101
[2020-10-24] MEDS ORDERED: BICITRA 30ML SOLN UDC PO ONE (07:15)
[2020-10-24] MEDS ORDERED: LACTATED RINGER'S 1000 ML IV ONE (07:15)
[2020-10-24] MEDS ORDERED: ceFAZolin SOD 2 GM in IV 1 EA IV ONE (07:15)
[2020-10-24] MEDS ORDERED: FAMO20TA PO (07:59)
[2020-10-24] MEDS ORDERED: METF500T13 PO (07:59)
[2020-10-24 08:06] LABS: HEMATOCRIT 40.6 % (36.0-47.0); HEMOGLOBIN 13.5 g/dl (12.0-15.5); MEAN CORPUSCULAR HEMOGLOBIN 27.4 pg (27.0-33.0); MEAN CORPUSCULAR HGB CONC 33.3 g/dl (32.0-36.5); MEAN CORPUSCULAR VOLUME 82.5 fl (80.0-96.0); PLATELET COUNT, AUTOMATED 323 10^3/uL (150-450); RED BLOOD COUNT 4.92 10^6/uL (4.00-5.40)
[2020-10-24] MEDS: LR 1,000 ML IV SCH ×2 (08:44→09:35)
[2020-10-24] MEDS ORDERED: MORPHINE PRES-FREE INJ 10 MG/10 ML VIAL (J2274) As Ordered ONE (10:03)
[2020-10-24] MEDS ORDERED: PHENYLephrine 500MCG 5ML (100MCG/ML) SYRINGE As Ordered ONE (10:05)
[2020-10-24] MEDS ORDERED: KETOROLAC 60MG 2ML VIAL As Ordered ONE (10:09)
[2020-10-24] MEDS ORDERED: OXYTOCIN INJ 10 UNITS/ML VIAL (J2590) As Ordered ONE ×2 (10:09→10:52)
[2020-10-24] MEDS ORDERED: ONDANSETRON 4MG/2ML VIAL As Ordered ONE (10:22)
[2020-10-24] MEDS ORDERED: dexameTHASONE 4 MG/ML 1ML VIAL (J1100 PER 1MG) As Ordered ONE (10:22)
[2020-10-24] MEDS ORDERED: METOCLOPRAMIDE INJ 10MG/2ML VIAL (J2765 PER 1) As Ordered ONE (11:12)
[2020-10-24] MEDS ORDERED: LR 1,000 ML IV SCH (11:16)
[2020-10-24] MEDS ORDERED: OXYTOCIN DRIP 30 UNITS in IV 1 EA IV SCH (11:16)
[2020-10-24] MEDS ORDERED: RHOGAM 300 MCG (1500 IU) INJ (J2790) IM SCH (11:20)
[2020-10-24] MEDS ORDERED: ONDANSETRON 4MG/2ML VIAL IV PRN (11:20)
[2020-10-24] MEDS ORDERED: SIMETHICONE 80MG CHEW TAB PO PRN (11:20)
[2020-10-24] MEDS ORDERED: PERCOCET 5MG/325MG TAB PO PRN (11:20)
[2020-10-24] MEDS ORDERED: MEASLES,MUMPS,RUBELLA VACCINE INJ (MMR-II) (90707) SC SCH (11:20)
[2020-10-24] MEDS ORDERED: OXYC1TAB23 PO (11:21)
[2020-10-24] MEDS ORDERED: COLA100C5 PO (11:21)
[2020-10-24] MEDS ORDERED: IBUP1TAB7 PO (11:21)
--- NOTE | 2020-10-24 12:08 | RO ---
OPERATIVE NOTE DATE OF OPERATION: 10/24/2020 PREOPERATIVE DIAGNOSIS: 1. 37 week, 2 days single term intrauterine with history of prior section. 2. A2 GDM not well controlled. 3. Chronic hypertension. 4. Obesity. POSTOPERATIVE DIAGNOSIS: 1. 37 week, 2 days single term intrauterine with history of prior section. 2. A2 GDM not well controlled. 3. Chronic hypertension. 4. Obesity. PROCEDURE: Repeat low transverse section. SURGEON: Madhuri Mcdonald MD COOK COLD MEAT: Hue Baker CNM ANESTHESIA: spinal INDICATION FOR OPERATION: Kaley is a 29-year-old, G3, now P 2-0-1-2, at 37 weeks, 2 days who has a history of a prior section in 2013 for arrest of dilation and elected for a repeat section. She has A2 GDM which was not well controlled, chronic hypertension and obesity with a starting BMI of 34.5. MATERIAL FORWARDED TO THE LAB FOR EXAMINATION: None. DESCRIPTION OF FINDINGS: Female in cephalic presentation, Apgars 7 and 9, weight 3200 gm or 7 lb, 1 oz. Normal appearing uterus and fallopian tubes. INFECTION CLASSIFICATION: 2. ESTIMATED BLOOD LOSS: 500 mL IV FLUIDS: Two liters of lactated Ringer's. URINE OUTPUT: 25 mL of yellow clear urine. DESCRIPTION OF PROCEDURE: After obtaining informed consent, the patient was taken to the operating room. She had a category 1 heart tracing prior. She received spinal anesthesia. Denis catheter and bilateral sequential compression devices were placed. She received 2 gm of IV Ancef prophylactically. She was prepped and draped in normal sterile fashion in the dorsal supine position with a left lateral tilt. A timeout was performed to confirm patient name, date of , procedure and indication and the team was in agreement. Spinal anesthesia was found to be adequate using an Allis clamp. A Pfannenstiel skin incision was made with the scalpel and carried through using Bovie cautery to the underlying layer of fascia. The fascia was incised in the midline and the incision was extended laterally with Cannon scissors. Superior and inferior aspects of the fascial incision were grasped with Kevin clamps, elevated and the underlying rectus muscles were dissected off bluntly and sharply. The peritoneum was entered digitally and the rectus muscles were in the midline. The peritoneal incision was extended superiorly and inferiorly with good visualization of the bladder. A Mobius retractor was then inserted. The vesicouterine peritoneum was identified, grasped with pickups and entered sharply with the Metzenbaum scissors. The incision was extended laterally and the bladder flap created digitally. The lower uterine segment was then scored in a transverse fashion with a new scalpel. The uterus was entered bluntly and the incision was extended with traction. The 's head was elevated to the level of the incision. Fundal pressure was applied. The head was delivered atraumatically in OT position. The anterior shoulder, posterior shoulder and corpus were delivered without difficulty. The nose and mouth were suctioned with bulb suction. Cord was clamped x2 and cut. Infant was handed off to the awaiting team. The placenta was removed with uterine massage and traction on the cord and the uterus was left in situ and cleared of all clot and debris. The uterine incision was repaired with 0 Vicryl suture in a running locking fashion and a second layer of 0 Monocryl was used to close the hysterotomy incision in imbricating fashion. The uterine incision was inspected. Hemostasis was noted. The peritoneum was closed using 3-0 Vicryl suture after removing the Mobius retractor using a running fashion for the closure. The rectus muscles were reapproximated with [id number] stitches using 0 Vicryl suture. The fascia was reapproximated with 0 Vicryl suture in a running fashion. The subcutaneous tissue was copiously irrigated. Scott's fascia was reapproximated using 3-0 Vicryl suture in a running fashion. Skin edges were reapproximated using three inverted interrupted stitches using 3-0 Vicryl suture followed by a running subcuticular stitch using 4-0 Monocryl. The incision was cleaned using a wet lap, dried with a dry lap. Steri-Strips were applied in the usual fashion perpendicular to the Pfannenstiel incision and an Optifoam dressing was placed overlying. The vagina was cleared of all blood clot without active bleeding noted. The fundus was firm at U. All counts were correct x2. The procedure was without complications. The patient tolerated the procedure well. She was taken to the recovery room on labor and delivery in stable condition. SUKHDEV
[2020-10-24 14:36] LABS: HIV 1&2 SCREEN CENTAUR NEGATIVE (NEGATIVE)
[2020-10-24] MEDS: KETOROLAC 30 MG/ML 1ML VIAL IV SCH ×2 (17:35→23:00)
[2020-10-24] MEDS: DOCUSATE SODIUM 100MG CAPSULE PO SCH (21:32)
[2020-10-24] MEDS: LABETALOL 100MG TAB PO SCH (21:33)
[2020-10-25 02:00] VITALS: BP 135/80
[2020-10-25] MEDS: KETOROLAC 30 MG/ML 1ML VIAL IV SCH (05:46)
[2020-10-25 06:00] VITALS: BP 135/80
[2020-10-25 07:38] LABS: HEMATOCRIT 29.7 % (36.0-47.0); MEAN CORPUSCULAR HEMOGLOBIN 27.4 pg (27.0-33.0); PLATELET COUNT, AUTOMATED 248 10^3/uL (150-450); RED BLOOD COUNT 3.58 10^6/uL (4.00-5.40)
[2020-10-25 07:41] LABS: HEMOGLOBIN 9.8 g/dl (12.0-15.5)
--- NOTE | 2020-10-25 08:17 | IPNPDOC ---
Progress Note Date of Service: Oct 25, 2020 Day#: 1 Progress Note SUBJECT: Kaley is a 29-year-old female who had a repeat section yesterday. Her was complicated by A2GDM and CHTN. Her blood pressures have started to become more stable. She has been ambulating, voiding spontaneously without issue and tolerating regular diet. OBJECTIVE: VITAL SIGNS: Within normal limits, afebrile. Alert and oriented times three. Breath sounds clear to auscultation. Abdomen: Fundus firm at U. Dressing is intact Minimal lochia. ASSESSMENT: Day 1 postoperative PLAN: 1. Continue supportive nursing care 2. Patient to shower today 3. Anticipate discharge to home tomorrow. VS, I&O, 24H, Fishbone Vital Signs/I&O Vital Signs Date Time Temp Pulse Resp B/P (MAP) Pulse Ox O2 Delivery O2 Flow Rate FiO2 10/25/20 06:00 98.6 98 16 135/80 (98) 99 Room Air I&O- Last 24 Hours up to 6 AM 10/25/20 05:59 Intake Total 3187 ml Output Total 1556 ml Balance 1631 ml Laboratory Data 24H LABS Laboratory Tests 2 10/24/20 09:37: Bedside Glucose (Misc Panel) 92 10/24/20 10:30: Serology Scanned Report Hepatitis B Testing 10/25/20 06:59: Nucleated Red Blood Cells % (auto) 0.0 CBC/BMP Laboratory Tests 10/25/20 06:59 PABLO LANGSTON CNM Oct 25, 2020 08:17
[2020-10-25] MEDS: FAMOTIDINE 20 MG TAB PO SCH (08:56)
[2020-10-25] MEDS: DOCUSATE SODIUM 100MG CAPSULE PO SCH ×2 (08:56→21:11)
[2020-10-25] MEDS: PRENATAL VITAMINS CHEWABLE TABLET PO SCH (08:56)
[2020-10-25] MEDS: LABETALOL 100MG TAB PO SCH ×2 (08:56→21:13)
[2020-10-25 10:00] VITALS: BP 110/58
[2020-10-25] MEDS: IBUPROFEN 800 MG TAB PO SCH ×2 (12:32→21:11)
[2020-10-25 14:00] VITALS: BP 124/70
[2020-10-25] MEDS: PERCOCET 5MG/325MG TAB PO PRN ×2 (17:30→22:50)
[2020-10-25 18:00] VITALS: BP 152/86
[2020-10-25 22:00] VITALS: BP 126/66
[2020-10-26 02:00] VITALS: BP 116/56
[2020-10-26] MEDS: IBUPROFEN 800 MG TAB PO SCH (05:14)
--- NOTE | 2020-10-26 05:43 | DS.PDOC ---
Discharge Summary General Date of Admission Oct 24, 2020 at 06:43 Date of Discharge 10/26/2020 Attending Physician: Madhuri Mcdonald MD Discharge Summary PROCEDURES PERFORMED DURING STAY: 1. Spinal anesthesia 2. section. ADMITTING DIAGNOSES: 1. Previous section 2. Chronic Hypertension 3. Gestational diabetes. DISCHARGE DIAGNOSES: 1. Same as above. COMPLICATIONS/CHIEF COMPLAINT: Previous Gestational Diabetic Chronic Hyp. HISTORY OF PRESENT ILLNESS: Kaley is a 29-year-old 3 para 2 presented for scheduled section at 37 weeks for history of section, chronic hypertension and gestational diabetes. section was uncom plicated productive of a liveborn female infant weight was 3200 g Apgars 7 and 9 estimated blood loss is 500ml. Patient did well postoperatively by postoperative day #2 had met all discharge criteria is as discharged home in stable condition DISCHARGE MEDICATIONS: Please see below. ALLERGIES: Please see below. PHYSICAL EXAMINATION ON DISCHARGE: VITAL SIGNS: Please see below. GENERAL: Well-appearing no acute distress ABDOMINAL EXAMINATION: Soft appropriately tender. Incision was clean dry and dressed EXTREMITIES: Negative calf tenderness NEUROLOGICAL EXAMINATION: Grossly intact PSYCHIATRIC EXAMINATION: Appropriate LABORATORY DATA: Please see below. ACTIVITY: As tolerated. DIET: Regular DISCHARGE PLAN: Home DISCHARGE INSTRUCTIONS: 1. Remove dressing in 5-7 days 2. Follow-up in 2 weeks for incision check 3. Reports severe pain heavy vaginal bleeding fever or incisional issues. DISCHARGE CONDITION: Stable. Vital Signs/I&Os Vital Signs Date Time Temp Pulse Resp B/P (MAP) Pulse Ox O2 Delivery O2 Flow Rate FiO2 10/26/20 02:00 98.5 105 20 116/56 (76) 100 Room Air Laboratory Data Labs 24H Laboratory Tests 2 10/25/20 06:59: Nucleated Red Blood Cells % (auto) 0.0 CBC/BMP Laboratory Tests 10/25/20 06:59 Discharge Medications Scheduled Docusate Sodium (Colace) 100 Mg Capsule, 100 MG PO BID Famotidine (Famotidine) 20 Mg Tablet, 20 MG PO DAILY, (Reported) Ibuprofen (Ibuprofen) 800 Mg Tablet, 1 TAB PO TID for pain Labetalol HCl (Labetalol HCl) 100 Mg Tablet, 1 TAB PO BID No.137/Iron/Folic Acd ( Vitamin Tablet) 1 Each Tablet, 1 TAB PO DAILY, (Reported) Scheduled PRN Oxycodone HCl/Acetaminophen (Oxycodone-Acetaminophen 5-325) 1 Each Tablet, 1 TAB PO QIDP PRN for pain Allergies Coded Allergies: No Known Allergies (Unverified , 10/10/16) DEBRA JACOB MD. Oct 26, 2020 05:43
[2020-10-26 05:55] VITALS: BP 142/69
[2020-10-26 08:30] VITALS: BP 138/82
[2020-10-26 08:31] VITALS: BP 138/82
[2020-10-26] MEDS: FAMOTIDINE 20 MG TAB PO SCH (08:31)
[2020-10-26] MEDS: LABETALOL 100MG TAB PO SCH (08:31)
[2020-10-26] MEDS: DOCUSATE SODIUM 100MG CAPSULE PO SCH (08:31)
[2020-10-26] MEDS: PRENATAL VITAMINS CHEWABLE TABLET PO SCH (08:31)
== END 2020-10-26 12:20 | disposition home or self-care (01) | DRG 540 ==
LOC: M LDI 06:43 → M OBS 12:30
PROVIDERS: ADMIT Obstetrics & Gynecology; ATTEND Obstetrics & Gynecology
PROC: 10D00Z1 Extraction of Products of Conception, Low, Open Approach (ICD-10-PCS; principal; 2020-10-24 09:30)
DX: O34.211 Maternal care for low transverse scar from previous cesarean delivery (principal); O10.02 Pre-existing essential hypertension complicating childbirth; O24.429 Gestational diabetes mellitus in childbirth, unspecified control; O99.214 Obesity complicating childbirth; E66.9 Obesity, unspecified; Z3A.37 37 weeks gestation of pregnancy; Z37.0 Single live birth

== ENCOUNTER → 2020-12-20 | Outpatient (REF) | payer OTHER ==
[~2020-12-20] MED LIST changes: +COLA100C5 PO; +FAMO20TA PO; +IBUP1TAB7 PO; +METF500T13 PO; +OXYC1TAB23 PO
== END ==
LOC: M PLALAB 12:00
PROVIDERS: ATTEND Obstetrics & Gynecology
DX: Z53.20 Procedure and treatment not carried out because of patient's decision for unspecified reasons (principal)

== ENCOUNTER 2021-03-13 10:34 | Emergency (ER) | payer OTHER ==
[~2021-03-13] VITALS: Ht 162.6 cm; Wt 98.3 kg
[2021-03-13 12:09] LABS: BASO # 0.1 10^3/uL (0.0-0.2); BASO % 0.8 % (0.0-1.0); EOS # 0.1 10^3/uL (0.0-0.5); HEMATOCRIT 44.6 % (36.0-47.0); HEMOGLOBIN 14.7 g/dl (12.0-15.5); LYMPH # 1.8 10^3/uL (1.5-5.0); LYMPH % 16.9 % (24.0-44.0); MEAN CORPUSCULAR HEMOGLOBIN 27.1 pg (27.0-33.0); MEAN CORPUSCULAR VOLUME 82.1 fl (80.0-96.0); MONO # 0.7 10^3/uL (0.0-0.8); MONO % 6.4 % (2.0-8.0); NEUTROPHILS # 7.7 10^3/uL (1.5-8.5); PLATELET COUNT, AUTOMATED 374 10^3/uL (150-450); RED BLOOD COUNT 5.43 10^6/uL (4.00-5.40); WHITE BLOOD COUNT 10.4 10^3/uL (4.0-10.0)
[2021-03-13 12:12] LABS: APPEARANCE, URINE HAZY (CLEAR); BACTERIA, URINE AUTO 2+ (NEGATIVE); BILIRUBIN, URINE AUTO NEGATIVE (NEGATIVE); BLOOD, URINE BLOOD 1+ (NEGATIVE); COLOR, URINE YELLOW (YELLOW); GLUCOSE, URINE (UA) AUTO NEGATIVE (NEGATIVE); KETONE, URINE AUTO NEGATIVE (NEGATIVE); LEUKOCYTE ESTERASE, URINE AUTO TRACE (NEGATIVE); MUCUS, URINE SMALL (NEGATIVE); NITRITE, URINE AUTO POSITIVE (NEGATIVE); PROTEIN, URINE AUTO 1+ mg/dL (NEGATIVE); RBC, URINE AUTO 1 /HPF (0-3); SPECIFIC GRAVITY URINE AUTO 1.016 (1.002-1.035); SQUAMOUS EPITHELIAL CELL UR AU 3 /HPF (0-6); UROBILINOGEN, URINE AUTO 0.2 mg/dL (0.0-2.0); WBC, URINE AUTO 2 /HPF (0-3)
[2021-03-13 12:32] LABS: ALBUMIN 3.7 GM/DL (3.2-5.2); ALT/SGPT 34 U/L (12-78); BILIRUBIN,DIRECT < 0.1 MG/DL (0.0-0.2); BILIRUBIN,TOTAL 0.4 MG/DL (0.2-1.0); TOTAL PROTEIN 7.5 GM/DL (6.4-8.2)
[2021-03-13 15:18] VITALS: BP 146/78
--- NOTE | 2021-03-13 19:21 | ECGEPIP ---
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
== END 2021-03-13 16:35 | disposition left against medical advice (07) ==
LOC: M ED 10:34
DX: Z53.29 Procedure and treatment not carried out because of patient's decision for other reasons (principal)

== ENCOUNTER → 2022-02-23 | Outpatient (CLI) | payer OTHER | LOC: M PLALAB 13:52 | PROVIDERS: ATTEND Specialist | DX: Z34.81 Encounter for supervision of other normal pregnancy, first trimester (principal) ==

== ENCOUNTER → 2022-03-16 | Outpatient (CLI) | payer OTHER ==
[~2022-03-16] MED LIST changes: -LABE100T5 PO; +LABE100T71 PO
[2022-03-16 15:54] LABS: BASO # 0.1 10^3/uL (0.0-0.2); BASO % 0.5 % (0.0-1.0); EOS # 0.1 10^3/uL (0.0-0.5); HEMATOCRIT 39.6 % (36.0-47.0); HEMOGLOBIN 13.2 g/dl (12.0-15.5); LYMPH # 1.8 10^3/uL (1.5-5.0); LYMPH % 14.6 % (24.0-44.0); MEAN CORPUSCULAR HEMOGLOBIN 27.8 pg (27.0-33.0); MEAN CORPUSCULAR HGB CONC 33.3 g/dl (32.0-36.5); MEAN CORPUSCULAR VOLUME 83.4 fl (80.0-96.0); MONO # 0.5 10^3/uL (0.0-0.8); MONO % 4.3 % (2.0-8.0); NEUTROPHILS # 9.7 10^3/uL (1.5-8.5); NEUTROPHILS % 78.1 % (36.0-66.0); PLATELET COUNT, AUTOMATED 322 10^3/uL (150-450); RED BLOOD COUNT 4.75 10^6/uL (4.00-5.40); WHITE BLOOD COUNT 12.4 10^3/uL (4.0-10.0)
[2022-03-16 17:35] LABS: HEPATITIS C VIRUS ABY INDEX < 0.0 INDEX (<0.8); HIV 1&2 SCREEN CENTAUR NEGATIVE (NEGATIVE)
[2022-03-16 22:12] LABS: GC DNA AMPLIFICATION NEGATIVE (NEGATIVE)
== END ==
LOC: M PLALAB 10:33
PROVIDERS: ATTEND Specialist
DX: Z34.81 Encounter for supervision of other normal pregnancy, first trimester (principal); Z3A.00 Weeks of gestation of pregnancy not specified

== ENCOUNTER → 2022-04-24 | Outpatient (CLI) | payer OTHER | LOC: M WHC 14:14 | PROVIDERS: ATTEND Specialist | DX: Z34.82 Encounter for supervision of other normal pregnancy, second trimester (principal); Z3A.19 19 weeks gestation of pregnancy ==

== ENCOUNTER → 2022-05-16 | Outpatient (CLI) | payer OTHER | LOC: M WHC 08:58 | PROVIDERS: ATTEND Specialist | DX: Z36.89 Encounter for other specified antenatal screening (principal); Z3A.23 23 weeks gestation of pregnancy ==

== ENCOUNTER → 2022-06-05 | Outpatient (CLI) | payer OTHER ==
[2022-06-05 14:08] LABS: HEMATOCRIT 34.8 % (36.0-47.0); HEMOGLOBIN 11.4 g/dl (12.0-15.5); MEAN CORPUSCULAR HEMOGLOBIN 27.1 pg (27.0-33.0); MEAN CORPUSCULAR HGB CONC 32.8 g/dl (32.0-36.5); MEAN CORPUSCULAR VOLUME 82.9 fl (80.0-96.0); PLATELET COUNT, AUTOMATED 312 10^3/uL (150-450); WHITE BLOOD COUNT 12.5 10^3/uL (4.0-10.0)
[2022-06-05 14:30] LABS: GC DNA AMPLIFICATION NEGATIVE (NEGATIVE)
== END ==
LOC: M LAB 11:20
PROVIDERS: ATTEND Specialist
DX: Z34.82 Encounter for supervision of other normal pregnancy, second trimester (principal); Z3A.00 Weeks of gestation of pregnancy not specified

== ENCOUNTER → 2022-06-21 | Outpatient (CLI) | payer OTHER | LOC: M WHC 10:42 | PROVIDERS: ATTEND Specialist | DX: Z34.83 Encounter for supervision of other normal pregnancy, third trimester (principal); Z3A.28 28 weeks gestation of pregnancy ==

== ENCOUNTER 2022-08-07 12:09 | Outpatient (CLI) | payer OTHER ==
[~2022-08-07] VITALS: Ht 162.6 cm; Wt 120.6 kg
[2022-08-07] MEDS ORDERED: PRENTAB9 PO (12:26)
[2022-08-07] MEDS ORDERED: HOME MED LIST COMPLETE! XX SCH (12:30)
[2022-08-07 12:41] VITALS: BP 130/60
[2022-08-07] MEDS ORDERED: LEXA1TAB PO (12:53)
[2022-08-07] MEDS ORDERED: OMEP-173 PO (12:53)
== END 2022-08-07 13:20 | disposition home or self-care (01) ==
LOC: M LDO 12:09
PROVIDERS: ATTEND Obstetrics & Gynecology
DX: O26.893 Other specified pregnancy related conditions, third trimester (principal); M54.50 Low back pain, unspecified; R10.2 Pelvic and perineal pain; N89.8 Other specified noninflammatory disorders of vagina; Z3A.24 24 weeks gestation of pregnancy

== ENCOUNTER → 2022-08-21 | Outpatient (REF) | payer OTHER ==
[~2022-08-21] MED LIST changes: +LEXA1TAB PO; +OMEP-173 PO
== END ==
LOC: M SFHCWAGY 16:44
PROVIDERS: ATTEND Specialist
DX: Z34.83 Encounter for supervision of other normal pregnancy, third trimester (principal)

== ENCOUNTER 2022-08-28 11:54 | Inpatient (IN) | payer OTHER ==
[2022-08-28] VITALS (11 sets, daily range): BP systolic 116–137; BP diastolic 64–78
[~2022-08-28] VITALS: Ht 162.6 cm; Wt 120.6 kg
[2022-08-28] MEDS ORDERED: HOME MED LIST COMPLETE! XX SCH (12:20)
[2022-08-28 12:48] LABS: HEMATOCRIT 35.2 % (36.0-47.0); HEMOGLOBIN 10.9 g/dl (12.0-15.5); MEAN CORPUSCULAR HEMOGLOBIN 23.5 pg (27.0-33.0); MEAN CORPUSCULAR VOLUME 75.9 fl (80.0-96.0); PLATELET COUNT, AUTOMATED 341 10^3/uL (150-450); RED BLOOD COUNT 4.64 10^6/uL (4.00-5.40); WHITE BLOOD COUNT 13.8 10^3/uL (4.0-10.0)
[2022-08-28 12:59] LABS: TOTAL PROTEIN,RANDOM URINE 93.2 MG/DL (0.0-14.0)
[2022-08-28 13:04] LABS: CREATININE,RANDOM URINE 126.6 MG/DL
[2022-08-28 13:17] LABS: ALBUMIN 2.6 G/DL (3.2-5.2); ALKALINE PHOSPHATASE 135 U/L (46-116); ALT/SGPT 16 U/L (7.0-40); AST/SGOT 23 U/L (<34); BILIRUBIN,TOTAL 0.2 MG/DL (0.3-1.2); BLOOD UREA NITROGEN 9 MG/DL (9-23); CARBON DIOXIDE LEVEL 22 MMOL/L (20-31); CHLORIDE LEVEL 104 MMOL/L (98-107); CREATININE FOR GFR 0.48 MG/DL (0.55-1.30); GLOMERULAR FILTRATION RATE > 60.0 (>60); GLUCOSE, FASTING 82 MG/DL (60-100); POTASSIUM SERUM 4.5 MMOL/L (3.5-5.1); SODIUM LEVEL 137 MMOL/L (136-145); TOTAL PROTEIN 6.5 G/DL (5.7-8.2)
[2022-08-28 14:08] LABS: URIC ACID 6.3 MG/DL (3.1-7.8)
[2022-08-28] MEDS ORDERED: LACTATED RINGER'S 1000 ML IV STA (14:50)
[2022-08-28] MEDS ORDERED: ceFAZolin SOD 3 GM IV Place Holder IV ONE (14:50)
[2022-08-28] MEDS ORDERED: LR 1,000 ML IV SCH ×2 (14:50→18:40)
[2022-08-28] MEDS ORDERED: TRANEXAMIC ACID INJection 1,000 MG in NS 100 ML IV PRN (14:50)
[2022-08-28] MEDS ORDERED: CARBOPROST TROMETHAMINE 250 MCG/ML AMP IM PRN (14:50)
[2022-08-28] MEDS ORDERED: METHYLERGONOVINE MALEATE 0.2 MG/ML VIAL (J2210) IM PRN (14:50)
[2022-08-28] MEDS ORDERED: OXYTOCIN DRIP 30 UNITS in IV 1 EA IV PRN ×4 (14:50)
[2022-08-28] MEDS ORDERED: BICITRA 30ML SOLN UDC PO ONE (14:50)
[2022-08-28] MEDS ORDERED: ceFAZolin SOD 2 GM in IV 1 EA IV ONE (15:00)
[2022-08-28] MEDS ORDERED: ceFAZolin SOD 1 GM in D5W MINI-BAG PLUS 50 ML IV ONE (15:00)
[2022-08-28] MEDS ORDERED: MORPHINE PRES-FREE INJ 10 MG/10 ML VIAL As Ordered ONE (16:05)
[2022-08-28] MEDS ORDERED: PHENYLephrine 500MCG 5ML (100MCG/ML) SYRINGE As Ordered ONE ×2 (16:06→16:47)
[2022-08-28] MEDS ORDERED: ePHEDrine SULFATE 25 MG/5 ML(5MG/ML) SYRINGE As Ordered ONE (16:06)
[2022-08-28] MEDS ORDERED: OXYTOCIN 30UNITS IN 0.9% NaCl 500ML IV BAG As Ordered ONE ×2 (16:07→18:28)
[2022-08-28] MEDS ORDERED: ONDANSETRON 4MG 2ML VIAL As Ordered ONE (16:42)
[2022-08-28] MEDS ORDERED: KETOROLAC 60MG 2ML VIAL As Ordered ONE ×2 (16:59→17:03)
[2022-08-28] MEDS ORDERED: fentaNYL 100 MCG/2 ML INJECTION As Ordered ONE (17:29)
[2022-08-28] MEDS ORDERED: RHOGAM 300MCG (1500IU) INJ IM SCH (18:30)
[2022-08-28] MEDS ORDERED: METOCLOPRAMIDE INJ 10MG/2ML VIAL IV PRN ×2 (18:30→18:40)
[2022-08-28] MEDS ORDERED: OXYTOCIN DRIP 30 UNITS in IV 1 EA IV SCH (18:30)
[2022-08-28] MEDS ORDERED: ONDANSETRON 4MG 2ML VIAL IV PRN ×2 (18:30→18:40)
[2022-08-28] MEDS ORDERED: SIMETHICONE 80MG CHEW TAB PO PRN (18:30)
[2022-08-28] MEDS: ACETAMINOPHEN 500 MG TAB PO SCH ×2 (18:30→23:59)
[2022-08-28] MEDS ORDERED: oxyCODONE 5MG TAB PO PRN ×2 (18:30)
[2022-08-28] MEDS ORDERED: DOCUSATE SODIUM 100MG CAPSULE PO PRN (18:30)
[2022-08-28] MEDS ORDERED: fentaNYL 100 MCG/2 ML INJECTION IV PRN (18:40)
[2022-08-28] MEDS ORDERED: **NOTE PATIENT COMMENT** MISC XX SCH (18:40)
[2022-08-28] MEDS ORDERED: MEPERIDINE INJ 25 MG/ML VIAL IV PRN (18:40)
[2022-08-28] MEDS ORDERED: NALOXONE INJ 0.4MG/1ML VIAL IV PRN ×2 (18:40)
[2022-08-28] MEDS: SLF 3 ML SYR IV SCH (18:40)
[2022-08-28] MEDS ORDERED: diphenhydrAMINE 50MG/ML VIAL IV PRN (18:40)
[2022-08-28 19:45] LABS: HEMATOCRIT 34.6 % (36.0-47.0); HEMOGLOBIN 10.4 g/dl (12.0-15.5); MEAN CORPUSCULAR HGB CONC 30.1 g/dl (32.0-36.5); MEAN CORPUSCULAR VOLUME 76.4 fl (80.0-96.0); PLATELET COUNT, AUTOMATED 325 10^3/uL (150-450); RED BLOOD COUNT 4.53 10^6/uL (4.00-5.40)
[2022-08-28 19:55] LABS: GLOMERULAR FILTRATION RATE > 60.0 (>60)
[2022-08-28] MEDS: LABETALOL 100MG TAB PO SCH (20:42)
[2022-08-29 02:00] VITALS: BP 109/58
[2022-08-29 05:39] VITALS: BP 139/85
[2022-08-29] MEDS: KETOROLAC 30 MG/ML 1ML VIAL IV SCH ×3 (05:44→10:24)
[2022-08-29] MEDS: ACETAMINOPHEN 500 MG TAB PO SCH ×3 (05:44→18:38)
[2022-08-29] MEDS: SLF 3 ML SYR IV SCH ×2 (06:01→10:40)
[2022-08-29 06:23] LABS: HEMATOCRIT 29.7 % (36.0-47.0); HEMOGLOBIN 9.2 g/dl (12.0-15.5); MEAN CORPUSCULAR HEMOGLOBIN 23.6 pg (27.0-33.0); MEAN CORPUSCULAR VOLUME 76.2 fl (80.0-96.0); PLATELET COUNT, AUTOMATED 258 10^3/uL (150-450); WHITE BLOOD COUNT 11.6 10^3/uL (4.0-10.0)
[2022-08-29 08:30] VITALS: BP 126/68
[2022-08-29] MEDS: ESCITALOPRAM OXALATE 10 MG TAB (LEXAPRO) PO SCH (08:49)
[2022-08-29] MEDS: PRENATAL VITAMINS CHEWABLE TABLET PO SCH (08:49)
[2022-08-29] MEDS: OMEPRAZOLE 20MG CAP PO SCH (08:49)
[2022-08-29] MEDS: LABETALOL 100MG TAB PO SCH ×2 (08:53→20:31)
[2022-08-29] MEDS ORDERED: PRENATAL VITAMINS CHEWABLE TABLET PO SCH (09:00)
[2022-08-29] MEDS: ENOXAPARIN 30MG/0.3ML SYRINGE (J1650 PER 10MG) SC SCH ×2 (10:24→20:31)
[2022-08-29 14:00] VITALS: BP 124/69
[2022-08-29 18:01] VITALS: BP 138/82
[2022-08-29] MEDS: IBUPROFEN 600MG TAB PO SCH (18:38)
[2022-08-29 22:00] VITALS: BP 123/64
[2022-08-30] MEDS: ACETAMINOPHEN 500 MG TAB PO SCH ×2 (01:14→06:13)
[2022-08-30] MEDS: IBUPROFEN 600MG TAB PO SCH ×2 (01:45→06:14)
[2022-08-30 02:00] VITALS: BP 125/65
[2022-08-30 06:00] VITALS: BP 122/67
[2022-08-30] MEDS: OMEPRAZOLE 20MG CAP PO SCH (08:43)
[2022-08-30] MEDS: ENOXAPARIN 30MG/0.3ML SYRINGE (J1650 PER 10MG) SC SCH (08:43)
[2022-08-30] MEDS: PRENATAL VITAMINS CHEWABLE TABLET PO SCH (08:43)
[2022-08-30 08:44] VITALS: BP 122/67
[2022-08-30] MEDS: LABETALOL 100MG TAB PO SCH (08:44)
[2022-08-30] MEDS: ESCITALOPRAM OXALATE 10 MG TAB (LEXAPRO) PO SCH (08:44)
[2022-08-30] MEDS ORDERED: COLA100C5 PO (08:59)
[2022-08-30] MEDS ORDERED: IBUP-1022 PO (08:59)
[2022-08-30] MEDS ORDERED: OXYC-517 PO (08:59)
[2022-08-30] MEDS ORDERED: MEASLES,MUMPS,RUBELLA VACCINE INJ (MMR-II) SC.IMMUN ONE (09:00)
== END 2022-08-30 10:45 | disposition home or self-care (01) | DRG 540 ==
LOC: M LDO 11:54 → M LDI 14:24 → M OBS 19:46
PROVIDERS: ADMIT Obstetrics & Gynecology; ATTEND Obstetrics & Gynecology
PROC: 0UB70ZZ Excision of Bilateral Fallopian Tubes, Open Approach (ICD-10-PCS; 2022-08-28)
PROC: 10D00Z1 Extraction of Products of Conception, Low, Open Approach (ICD-10-PCS; principal; 2022-08-28 16:30)
DX: O11.4 Pre-existing hypertension with pre-eclampsia, complicating childbirth (principal); Z3A.37 37 weeks gestation of pregnancy; O34.211 Maternal care for low transverse scar from previous cesarean delivery; O99.214 Obesity complicating childbirth; E66.9 Obesity, unspecified; Z37.0 Single live birth; Z30.2 Encounter for sterilization; Z79.899 Other long term (current) drug therapy

== ENCOUNTER → 2022-12-04 | Outpatient (CLI) | payer OTHER ==
[~2022-12-04] MED LIST changes: +IBUP-1022 PO; +OXYC-517 PO
== END ==
LOC: M WUC 12:42
PROVIDERS: ATTEND Physician Assistant
DX: S93.401A Sprain of unspecified ligament of right ankle, initial encounter (principal); S93.601A Unspecified sprain of right foot, initial encounter; X58.XXXA Exposure to other specified factors, initial encounter; Y92.9 Unspecified place or not applicable; Y93.9 Activity, unspecified; Y99.9 Unspecified external cause status

== ENCOUNTER → 2023-02-20 | Outpatient (REF) | payer OTHER, MEDICAID | LOC: M LAB REF 16:39 | PROVIDERS: ATTEND Physician Assistant | DX: J02.9 Acute pharyngitis, unspecified (principal) ==

== ENCOUNTER → 2023-03-18 | Outpatient (CLI) | payer OTHER | LOC: M RAD 17:41 | PROVIDERS: ATTEND Student in an Organized Health Care Education/Training Program | DX: M54.50 Low back pain, unspecified (principal) ==

== ENCOUNTER → 2023-04-19 | Outpatient (REF) | payer OTHER ==
[2023-04-19 20:32] LABS: GC DNA AMPLIFICATION NEGATIVE (NEGATIVE)
== END ==
LOC: M LAB REF 18:19
PROVIDERS: ATTEND Physician Assistant
DX: R30.0 Dysuria (principal)

== ENCOUNTER → 2024-01-30 | Outpatient (REF) | payer OTHER ==
[~2024-01-30] MED LIST changes: +LABE100T40 PO; -LABE100T71 PO
[2024-01-30 19:32] LABS: ALBUMIN 3.6 G/DL (3.2-5.2); ALKALINE PHOSPHATASE 108 U/L (46-116); ALT/SGPT 24 U/L (7.0-40); AST/SGOT 12 U/L (<34); BILIRUBIN,TOTAL 0.3 MG/DL (0.3-1.2); BLOOD UREA NITROGEN 9 MG/DL (9-23); CALCIUM LEVEL 9.5 MG/DL (8.5-10.1); CARBON DIOXIDE LEVEL 27 MMOL/L (20-31); CHLORIDE LEVEL 106 MMOL/L (98-107); CREATININE FOR GFR 0.53 MG/DL (0.55-1.30); GLOMERULAR FILTRATION RATE > 60.0 (>60); GLUCOSE, FASTING 120 MG/DL (60-100); SODIUM LEVEL 138 MMOL/L (136-145); TOTAL PROTEIN 6.9 G/DL (5.7-8.2)
[2024-01-30 19:46] LABS: URIC ACID 5.3 MG/DL (3.1-7.8)
== END ==
LOC: M LABWUC 17:24
PROVIDERS: ATTEND Physician Assistant
DX: M54.50 Low back pain, unspecified (principal); M47.896 Other spondylosis, lumbar region; M51.16 Intervertebral disc disorders with radiculopathy, lumbar region

== ENCOUNTER → 2024-02-26 | Outpatient (REF) | LOC: M PLAIMG 10:22 | PROVIDERS: ATTEND Internal Medicine | DX: M54.9 Dorsalgia, unspecified (principal) ==

== ENCOUNTER → 2024-06-03 | Outpatient (CLI) | payer OTHER | LOC: M RAD 10:13 | PROVIDERS: ATTEND Physician Assistant | DX: M51.16 Intervertebral disc disorders with radiculopathy, lumbar region (principal); M51.26 Other intervertebral disc displacement, lumbar region; M46.96 Unspecified inflammatory spondylopathy, lumbar region ==

== ENCOUNTER → 2024-08-31 | Outpatient (CLI) | payer OTHER ==
[2024-08-31 10:21] LABS: BLOOD UREA NITROGEN 14 MG/DL (9-23); CALCIUM LEVEL 8.7 MG/DL (8.5-10.1); CARBON DIOXIDE LEVEL 25 MMOL/L (20-31); CHLORIDE LEVEL 105 MMOL/L (98-107); GLOMERULAR FILTRATION RATE > 60.0 (>60); GLUCOSE, FASTING 103 MG/DL (60-100); POTASSIUM SERUM 4.5 MMOL/L (3.5-5.1); SODIUM LEVEL 140 MMOL/L (136-145)
[2024-08-31 10:23] LABS: HEMOGLOBIN A1c 5.2 % (4.0-6.0)
== END ==
LOC: M LAB 09:01
PROVIDERS: ATTEND Physician Assistant
DX: R73.01 Impaired fasting glucose (principal); Z86.32 Personal history of gestational diabetes

== ENCOUNTER → 2024-10-02 | Outpatient (REF) | payer OTHER | LOC: M WUC 21:36 | PROVIDERS: ATTEND Physician Assistant | DX: R30.0 Dysuria (principal) ==